=== PATIENT | male | born 1940 | race Caucasian/White ===

== ENCOUNTER 2022-03-27 11:52 | Emergency (ER) | payer MEDICARE ==
[~2022-03-27] VITALS: Ht 170.2 cm; Wt 81.0 kg
[2022-03-27] MEDS ORDERED: normal saline 1000ML IV soln IVB ONE (12:45)
[2022-03-27] MEDS ORDERED: tamsulosin 0.4mg capsule PO STA (12:53)
[2022-03-27 13:23] LABS: BASOPHILS # (AUTO) 0.1 X10'3 (0-0.2); EOSINOPHILS # (AUTO) 0.1 X10'3 (0-0.9); LYMPHOCYTES # (AUTO) 0.9 X10'3 (1.1-4.8); MONOCYTES # (AUTO) 0.8 X10'3 (0-0.9); NEUTROPHILS # (AUTO) 5.2 X10'3 (1.8-7.7); RED BLOOD COUNT 4.51 X10'6 (4.70-6.10); RED CELL DISTRIBUTION WIDTH 14.8 % (11.5-14.5)
[2022-03-27 13:26] LABS: BASOPHILS % (AUTO) 1.2 % (0-1); EOSINOPHILS % (AUTO) 0.8 % (0-6); HEMATOCRIT 40.4 % (42.0-52.0); HEMOGLOBIN 13.3 g/dl (14.0-17.9); LYMPHOCYTES % (AUTO) 13.1 % (21-51); MEAN CORPUSCULAR HEMOGLOBIN 29.5 PG (27.0-31.0); MEAN CORPUSCULAR HGB CONC 32.9 g/dL (33.0-36.5); MEAN CORPUSCULAR VOLUME 89.6 FL (78-98); MEAN PLATELET VOLUME 8.7 FL (7.4-10.4); MONOCYTES % (AUTO) 10.9 % (2-12); PLATELET COUNT 229 X10'3 (140-440)
[2022-03-27 13:32] LABS: ALANINE AMINOTRANSFERASE 12 U/L (12-78); ALBUMIN 2.9 G/DL (3.4-5.0); ALKALINE PHOSPHATASE 117 IU/L (46-116); ANION GAP 10 (8-16); ASPARTATE AMINO TRANSFERASE 14 U/L (10-37); BILIRUBIN,TOTAL 0.4 MG/DL (0.1-1.0); BLOOD UREA NITROGEN 26 MG/DL (7-18); BUN/CREATININE RATIO 17.3 (5.4-32.0); CALCIUM 8.7 MG/DL (8.5-10.1); CHLORIDE 106 MMOL/L (99-107); GLUCOSE 95 MG/DL (70-104); POTASSIUM 3.9 MMOL/L (3.5-5.1); SODIUM 140 MMOL/L (135-145); TOTAL CARBON DIOXIDE 24.2 MMOL/L (24-32); TOTAL PROTEIN 5.8 G/DL (6.4-8.2); eGFR 45 ML/MIN
[2022-03-27 13:36] LABS: CLARITY,URINE CLOUDY (Clear); COLOR,URINE AMBER (Yellow); GLUCOSE, URINE NEGATIVE (Neg); KETONES,URINE NEGATIVE (Neg); LEUKOCYTE ESTERASE ,URINE LARGE (Neg); NITRITES, URINE NEGATIVE (Neg); OCCULT BLOOD,URINE LARGE (Neg); PH,URINE 7.5 (4.8-8.0); PROTEIN,URINE 100 mg/dl (Neg)
[2022-03-27 13:37] LABS: UA COLLECTION TYPE FOLEY CATH
[2022-03-27 13:57] LABS: RBC,URINE 50-100 /HPF (0-2); WBC,URINE 30-50 /HPF (0-4)
[2022-03-27 14:00] LABS: BACTERIA,URINE 1+ /HPF (Neg); SQUAMOUS EPITHELIAL CELL,UR NONE SEEN /LPF (FEW)
[2022-03-27 15:29] VITALS: BP 165/87
== END 2022-03-27 15:34 | disposition home or self-care (01) ==
LOC: ER 11:53
DX: N13.9 Obstructive and reflux uropathy, unspecified (principal); N18.9 Chronic kidney disease, unspecified; N17.9 Acute kidney failure, unspecified
CPT/HCPCS: 36415; 51702; 80053; 81001; 85025; 87088; 99284; J7030